=== PATIENT | male | born 1995 | race Caucasian/White ===

== ENCOUNTER 2016-12-07 13:00 | Emergency (ER) | payer OTHER ==
[2016-12-07 14:32] LABS: HEMOGLOBIN 15.4 gm/dl (14.0-17.5); RED BLOOD COUNT 4.87 M/UL (4.20-5.50); WHITE BLOOD COUNT 7.4 K/UL (4.5-11.0)
[2016-12-07 15:46] LABS: BUN/CREATININE RATIO 19 (0-10)
== END 2016-12-07 22:45 | disposition short-term general hospital (02) ==
LOC: ER1 13:00
PROVIDERS: Specialist/Technologist Athletic Trainer
DX: J40 Bronchitis, not specified as acute or chronic (principal); R45.851 Suicidal ideations; F31.9 Bipolar disorder, unspecified; F41.9 Anxiety disorder, unspecified; F20.9 Schizophrenia, unspecified; Z79.899 Other long term (current) drug therapy; F17.200 Nicotine dependence, unspecified, uncomplicated
CPT/HCPCS: 36415; 71010; 80053; 80307; 85027; 96372; 99284; J1200; J2060

== ENCOUNTER 2016-12-10 19:39 | Emergency (ER) | payer OTHER | END 2016-12-10 19:57 | disposition home or self-care (01) | LOC: ER1 19:39 | DX: Z53.21 Procedure and treatment not carried out due to patient leaving prior to being seen by health care provider (principal) ==

== ENCOUNTER 2017-01-22 20:08 | Emergency (ER) | payer OTHER ==
[2017-01-22 22:00] LABS: HEMOGLOBIN 15.1 gm/dl (14.0-17.5); RED BLOOD COUNT 4.78 M/UL (4.20-5.50); WHITE BLOOD COUNT 13.3 K/UL (4.5-11.0)
[2017-01-22 22:18] LABS: BUN/CREATININE RATIO 17 (0-10)
== END 2017-01-22 23:45 | disposition home or self-care (01) ==
LOC: ER1 20:08
PROVIDERS: Student in an Organized Health Care Education/Training Program
DX: G40.409 Other generalized epilepsy and epileptic syndromes, not intractable, without status epilepticus (principal); F12.10 Cannabis abuse, uncomplicated; F32.9 Major depressive disorder, single episode, unspecified; F17.210 Nicotine dependence, cigarettes, uncomplicated; Z79.899 Other long term (current) drug therapy
CPT/HCPCS: 36415; 70450; 71010; 72125; 80053; 80183; 80307; 81001; 82962; 83735; 85025; 87086; 93005; 96360; 99285; G0480; J7030